=== PATIENT | male | born 1950 | race Caucasian/White ===

== ENCOUNTER 2016-02-26 08:28 | Outpatient (RCR) | payer OTHER ==
[~2016-02-26 08:28] MED LIST: ASPIRIN PO; CHILDREN'S ASPIRIN; COUM2.5T11 PO; FISHCAP PO; LEVO75TA2; LEVOTHYROXINE PO; LYRI75CA PO; MOTR200T4; NAPRPOW4 PO; NORT25CA2; PERCOCET PO; PLAV75TA2; PRAVASTATIN PO; PRIL40CA; SIMV10TA2; SYNT75TA; TYLE325T5 PO; ZOCO10TA; [UNRECOGNIZED DRUG - CODE]
== END 2016-03-24 ==
LOC: M ST 08:28
PROVIDERS: ATTEND Otolaryngology
DX: Z43.0 Encounter for attention to tracheostomy (principal); C32.0 Malignant neoplasm of glottis
CPT/HCPCS: 92597; G9174; G9175; G9176

== ENCOUNTER → 2016-04-01 | Outpatient (CLI) | payer OTHER ==
[~2016-04-01] MED LIST changes: +GASTROGRAFIN SOLUTION 30ML (Q9963) As Ordered ONE; +ISOVUE-370 76% 100ML VIAL (Q9967) As Ordered ONE
--- NOTE | 2016-04-02 04:15 | REP ---
Clinical: Nausea with increasing bilirubin levels and history of neoplasm. Technique: Axial noncontrast images of the abdomen followed by contrast enhanced images of the abdomen and pelvis using oral and 100 ml Isovue 370 intravenous contrast material with coronal and sagittal re-formations. Comparison: 05/09/2006. Findings: Lung bases demonstrate mild chronic changes. Visualized portions of the heart and pericardium normal. Liver, spleen, pancreas, left adrenal gland and bilateral kidneys are normal. 1.8 cm right adrenal adenoma is identified and stable compared to 2006. The enteric system is without obstruction or acute inflammatory process and a normal terminal ileum and appendix are identified in the right lower quadrant. Colonic and sigmoid diverticulosis noted without acute diverticulitis. Pelvis demonstrates relatively normal bladder and age appropriate prostate/seminal vesicles. Metallic streak artifact from the left hip prosthesis somewhat limits evaluation of the left jose pelvis. No pelvic fluid or ascites. No intraperitoneal or retroperitoneal adenopathy. No free air. Abdominal aorta and vasculature appears normal. Musculoskeletal structures demonstrate age-related changes. Impression: 1. Stable benign 1.8 cm right adrenal adenoma. II. Colonic diverticulosis. 3. No further acute intra-abdominal or pelvic pathology appreciated. Signed by Oni Wright MD 04/02/2016 04:07 A
== END ==
LOC: M RAD 14:11
PROVIDERS: ATTEND Physician Assistant Medical
DX: K57.90 Diverticulosis of intestine, part unspecified, without perforation or abscess without bleeding (principal)
CPT/HCPCS: 74178; Q9963; Q9967

== ENCOUNTER 2016-04-14 09:26 | Outpatient (RCR) | payer OTHER ==
[~2016-04-14 09:26] MED LIST changes: -GASTROGRAFIN SOLUTION 30ML (Q9963) As Ordered ONE; -ISOVUE-370 76% 100ML VIAL (Q9967) As Ordered ONE
== END 2016-04-21 ==
LOC: M ST 09:26
PROVIDERS: ATTEND Otolaryngology
DX: Z51.89 Encounter for other specified aftercare (principal); Z93.0 Tracheostomy status; C32.0 Malignant neoplasm of glottis
CPT/HCPCS: 92597; G9174; G9175; G9176

== ENCOUNTER 2016-07-09 08:55 | Outpatient (RCR) | payer OTHER | END 2016-07-22 | LOC: M ST 08:55 | PROVIDERS: ATTEND Otolaryngology | DX: Z51.89 Encounter for other specified aftercare (principal) | CPT/HCPCS: 92597; G9174; G9175; G9176 ==

== ENCOUNTER → 2016-07-21 | Outpatient (CLI) | payer OTHER ==
[~2016-07-21] MED LIST changes: +ISOVUE-370 76% 100ML VIAL (Q9967) As Ordered ONE
--- NOTE | 2016-07-21 16:03 | REP ---
CT HEAD WITHOUT AND WITH CONTRAST: HISTORY: Headache. CONTRAST: Isovue-370 75 mL. COMPARISON: 05/15/2008 An area of decreased attentuation is present in the posterior left temporal and parietal lobes. There is dilatation of the overlying cortical sulci. This represents an old infarction. Areas of decreased attenuation are present in the periventricular white matter. This represents small vessel ischemic disease. There is no intraparenchymal hemorrhage, mass, or midline shift. There is no abnormal enhancement. The ventricular system and cortical sulci are dilated consistent with mild volume loss. There is no extracerebral collection. The visualized sinuses are clear. IMPRESSION: 1. 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 2. Small vessel ischemic disease. 3. Mild volume loss. Signed by Ishmael Beaulieu MD 07/21/2016 04:14 P
--- NOTE | 2016-07-21 16:10 | REP ---
CT NECK WITH CONTRAST: HISTORY: Headache. CONTRAST: Isovue-370 75 mL COMPARISON: 05/23/2008 The patient is status-post total laryngectomy and left radical neck dissection. A tracheostomy is present. The patient is status-post stenting of the left common carotid and internal carotid arteries. The naso and oropharynx are normal in appearance. The salivary glands are normal in appearance. The right thyroid lobe is normal in appearance. The left thyroid lobe is not seen. Small lymph nodes less than 1 cm in size are present in the right posterior triangle and submandibular atherosclerotic calcification is present at the right carotid bifurcation. Degenerative change is present in the cervical spine. The lung apices are clear. The visualized sinuses are clear. IMPRESSION:1. The patient is status-post total laryngectomy, left radial neck dissection and tracheostomy. 2. There is no neck mass or adenopathy. Signed by Ishmael Beaulieu MD 07/21/2016 04:15 P
--- NOTE | 2016-07-21 23:10 | REP ---
Clinical: Cough and history of carcinoma. Comparison: 06/22/2013. Technique: Axial contrast enhanced images from the thoracic inlet to the upper abdomen using 100 ml Isovue 370 intravenous contrast material with coronal and sagittal re-formations. Findings: The patient is again noted to be status post radical neck dissection with tracheostomy. A stent is identified in the left common carotid artery. The bilateral lung zurita demonstrate minimal scarring primarily involving the right middle lobe. A few scattered minuscule nodules are again identified and unchanged. No consolidation, significant nodule or mass lesion appreciated. No pleural effusion/reaction or pneumothorax. Tracheobronchial tree is patent. The mediastinum demonstrates mild atherosclerotic changes. The thoracic aorta is without aneurysm or dissection. The heart is normal in size and without pericardial effusion. No axillary, hilar or mediastinal adenopathy appreciated. Impression: 1. Minimal chronic changes including linear scarring in the right middle lobe and few very small scattered nodular densities remain unchanged compared to 2013. 2. No new, significant mediastinal or pleuroparenchymal process. Signed by Oni Wright MD 07/21/2016 11:01 P
== END ==
LOC: M RAD 14:28
PROVIDERS: ATTEND Physician Assistant Medical
DX: I66.3 Occlusion and stenosis of cerebellar arteries (principal); R51 Headache; R05 Cough
CPT/HCPCS: 70470; 70491; 71260; Q9967

== ENCOUNTER 2016-08-11 09:40 | Outpatient (RCR) | payer MEDICARE, OTHER ==
[~2016-08-11 09:40] MED LIST changes: -COUM2.5T11 PO; +COUM2.5T17 PO; -ISOVUE-370 76% 100ML VIAL (Q9967) As Ordered ONE
== END 2016-08-21 | disposition home or self-care (01) ==
LOC: M ST 09:40
PROVIDERS: ATTEND Otolaryngology
DX: Z51.89 Encounter for other specified aftercare (principal); J95.04 Tracheo-esophageal fistula following tracheostomy
CPT/HCPCS: 92597; G9174; G9175; G9176

== ENCOUNTER 2016-08-18 08:30 | Outpatient (RCR) | payer MEDICARE, OTHER | END 2016-08-21 | LOC: M ST 08:30 | PROVIDERS: ATTEND Otolaryngology | DX: Z51.89 Encounter for other specified aftercare (principal); J95.04 Tracheo-esophageal fistula following tracheostomy ==

== ENCOUNTER 2016-09-07 17:24 | Outpatient (RCR) | payer MEDICARE, OTHER | END 2016-09-21 | LOC: M ST 17:24 | PROVIDERS: ATTEND Otolaryngology | DX: Z51.89 Encounter for other specified aftercare (principal); Z43.0 Encounter for attention to tracheostomy | CPT/HCPCS: 92597; G9174; G9175; G9176 ==

== ENCOUNTER 2017-03-02 09:11 | Outpatient (RCR) | payer OTHER | END 2017-03-24 | LOC: M ST 09:11 | DX: Z97.8 Presence of other specified devices (principal) | CPT/HCPCS: 92597 ==

== ENCOUNTER 2017-05-06 13:47 | Outpatient (RCR) | payer OTHER | END 2017-05-22 | LOC: M ST 13:47 | DX: Z51.89 Encounter for other specified aftercare (principal); Z90.02 Acquired absence of larynx | CPT/HCPCS: 92597 ==

== ENCOUNTER 2017-09-30 08:51 | Outpatient (RCR) | payer OTHER | END 2017-10-22 | LOC: M ST 08:51 | DX: Z44.8 Encounter for fitting and adjustment of other external prosthetic devices (principal); Z96.3 Presence of artificial larynx; Z51.89 Encounter for other specified aftercare | CPT/HCPCS: 92597 ==

== ENCOUNTER 2017-12-04 18:38 | Emergency (ER) | payer OTHER | END 2017-12-04 19:39 | disposition home or self-care (01) | LOC: M ED 18:38 | DX: J98.09 Other diseases of bronchus, not elsewhere classified (principal); I10 Essential (primary) hypertension | CPT/HCPCS: 99282 ==

== ENCOUNTER 2017-12-06 10:35 | Outpatient (RCR) | payer OTHER | END 2017-12-22 | LOC: M ST 12-08 13:00 | DX: Z90.02 Acquired absence of larynx (principal) | CPT/HCPCS: 92597 ==

== ENCOUNTER → 2017-12-06 | Outpatient (CLI) | payer OTHER | LOC: M RAD 15:49 | DX: J86.0 Pyothorax with fistula (principal); Z85.21 Personal history of malignant neoplasm of larynx; Z97.8 Presence of other specified devices | CPT/HCPCS: 74019 ==

== ENCOUNTER → 2017-12-06 | Outpatient (REF) | payer OTHER | LOC: M LAB REF 17:28 | DX: Z85.21 Personal history of malignant neoplasm of larynx (principal) ==

== ENCOUNTER → 2017-12-15 | Outpatient (CLI) | payer OTHER | LOC: M RAD 13:27 | DX: J86.0 Pyothorax with fistula (principal); Z93.1 Gastrostomy status; Z98.890 Other specified postprocedural states | CPT/HCPCS: 74019 ==

== ENCOUNTER 2017-12-22 09:07 | Day surgery (SDC) | payer OTHER ==
[2017-12-22] MEDS: CIPRODEX OTIC SUSP 7.5ML As Ordered (10:43)
[2017-12-22] MEDS ORDERED: ePHEDrine SULFATE 25 MG/5 ML(5MG/ML) SYRINGE As Ordered (11:22)
[2017-12-22] MEDS ORDERED: LIDOCAINE 2% INJ 100 MG/5 ML SDV (FOR ANES.) As Ordered (11:22)
[2017-12-22] MEDS ORDERED: fentaNYL 100 MCG/2 ML INJECTION (J3010) As Ordered (11:22)
[2017-12-22] MEDS ORDERED: PROPOFOL 200 MG/20 ML VIAL As Ordered (11:22)
[2017-12-22] MEDS ORDERED: MIDAZOLAM INJ 2 MG/2 ML VIAL (J2250) As Ordered (11:22)
[2017-12-22] MEDS ORDERED: LR 1,000 ML IV (11:45)
[2017-12-22] MEDS ORDERED: fentaNYL 100 MCG/2 ML INJECTION (J3010) IV (11:45)
[2017-12-22] MEDS ORDERED: ONDANSETRON 4MG/2ML VIAL (J2405) IV (11:45)
== END 2017-12-22 12:33 | disposition home or self-care (01) ==
LOC: M SDC 12:33
DX: T85.698A Other mechanical complication of other specified internal prosthetic devices, implants and grafts, initial encounter (principal); H61.22 Impacted cerumen, left ear; E03.9 Hypothyroidism, unspecified; E78.00 Pure hypercholesterolemia, unspecified; K44.9 Diaphragmatic hernia without obstruction or gangrene; K21.9 Gastro-esophageal reflux disease without esophagitis; G43.909 Migraine, unspecified, not intractable, without status migrainosus; Z79.899 Other long term (current) drug therapy; Z79.82 Long term (current) use of aspirin; Z86.73 Personal history of transient ischemic attack (TIA), and cerebral infarction without residual deficits; Z85.21 Personal history of malignant neoplasm of larynx; Z92.3 Personal history of irradiation; Z87.891 Personal history of nicotine dependence; Z96.642 Presence of left artificial hip joint; X58.XXXA Exposure to other specified factors, initial encounter; Y93.89 Activity, other specified; Y92.89 Other specified places as the place of occurrence of the external cause; Y99.8 Other external cause status
CPT/HCPCS: 69436

== ENCOUNTER 2018-01-24 11:57 | Day surgery (SDC) | payer OTHER ==
[2018-01-24] MEDS: LR 1,000 ML IV (13:06)
[2018-01-24] MEDS ORDERED: PROPOFOL 200 MG/20 ML VIAL As Ordered ×2 (13:59)
[2018-01-24] MEDS ORDERED: LIDOCAINE 2% INJ 100 MG/5 ML SDV (FOR ANES.) As Ordered (13:59)
[2018-01-24] MEDS ORDERED: ONDANSETRON 4MG/2ML VIAL (J2405) As Ordered (13:59)
[2018-01-24] MEDS ORDERED: MIDAZOLAM INJ 2 MG/2 ML VIAL (J2250) As Ordered (14:00)
[2018-01-24] MEDS ORDERED: fentaNYL 100 MCG/2 ML INJECTION (J3010) As Ordered (14:00)
== END 2018-01-24 15:58 | disposition home or self-care (01) ==
LOC: M SDC 11:57
DX: J95.04 Tracheo-esophageal fistula following tracheostomy (principal); E78.5 Hyperlipidemia, unspecified; K44.9 Diaphragmatic hernia without obstruction or gangrene; K21.9 Gastro-esophageal reflux disease without esophagitis; E03.9 Hypothyroidism, unspecified; Z85.21 Personal history of malignant neoplasm of larynx; Z79.82 Long term (current) use of aspirin; Z86.73 Personal history of transient ischemic attack (TIA), and cerebral infarction without residual deficits; Z98.61 Coronary angioplasty status; Z87.891 Personal history of nicotine dependence
CPT/HCPCS: 43246

== ENCOUNTER 2018-02-01 11:37 | Emergency (ER) | payer OTHER ==
[2018-02-01] MEDS: NS 1,000 ML IV (13:38)
[2018-02-01] MEDS: ONDANSETRON 4MG/2ML VIAL (J2405) IV ×2 (13:38→16:09)
[2018-02-01] MEDS: MORPHINE 4 MG/ML 1ML VIAL/SYRINGE (J2270) IV (13:39)
[2018-02-01 13:41] LABS: BASO # 0.1 10^3/uL (0.0-0.2); BASO % 0.7 % (0.0-1.0); EOS # 0.1 10^3/uL (0.0-0.50); EOS % 0.5 % (0.0-3.0); HEMATOCRIT 47.6 % (42.0-52.0); HEMOGLOBIN 15.5 g/dl (13.5-17.5); IMMATURE GRANULOCYTE % 0.5 % (0-3.0); LYMPH # 1.4 10^3/uL (1.5-4.5); LYMPH % 11.3 % (24.0-44.0); MEAN CORPUSCULAR HEMOGLOBIN 30.3 pg (27.0-33.0); MEAN CORPUSCULAR HGB CONC 32.6 g/dl (32.0-36.5); MEAN CORPUSCULAR VOLUME 93.2 fl (80.0-96.0); MONO # 0.6 10^3/uL (0.0-0.8); MONO % 4.8 % (0.0-5.0); NEUTROPHILS # 10.1 10^3/uL (1.8-7.7); NEUTROPHILS % 82.2 % (36.0-66.0); PLATELET COUNT, AUTOMATED 535 10^3/uL (150-450); RED BLOOD COUNT 5.11 10^6/uL (4.30-6.10); RED CELL DISTRIBUTION WIDTH 14.3 % (11.5-14.5); WHITE BLOOD COUNT 12.3 10^3/uL (4.0-10.0)
[2018-02-01 14:02] LABS: LACTIC ACID SEPSIS PROTOCOL 0.9 MMOL/L (0.4-2.0)
[2018-02-01] MEDS ORDERED: GASTROGRAFIN SOLUTION 30ML (Q9963) As Ordered ×2 (14:09)
[2018-02-01 14:25] LABS: ALBUMIN 3.4 GM/DL (3.2-5.2); ALBUMIN/GLOBULIN RATIO 0.85 (1.00-1.93); ALKALINE PHOSPHATASE 204 U/L (45-117); ALT/SGPT 26 U/L (12-78); ANION GAP 6 MEQ/L (8-16); AST/SGOT 14 U/L (7-37); BILIRUBIN,DIRECT 0.2 MG/DL (0.0-0.2); BILIRUBIN,TOTAL 0.8 MG/DL (0.2-1.0); BLOOD UREA NITROGEN 16 MG/DL (7-18); CALCIUM LEVEL 8.9 MG/DL (8.8-10.2); CARBON DIOXIDE LEVEL 26 MEQ/L (21-32); CHLORIDE LEVEL 110 MEQ/L (98-107); CREATININE FOR GFR 0.93 MG/DL (0.70-1.30); GLOMERULAR FILTRATION RATE > 60.0 (>49); GLUCOSE, FASTING 104 MG/DL (70-100); LIPASE 58 U/L (73-393); POTASSIUM SERUM 4.1 MEQ/L (3.5-5.1); SODIUM LEVEL 142 MEQ/L (136-145); TOTAL PROTEIN 7.4 GM/DL (6.4-8.2)
[2018-02-01] MEDS: NS 500 ML IV (15:15)
[2018-02-01] MEDS: fentaNYL 100 MCG/2 ML INJECTION (J3010) IV ×2 (15:15→17:56)
[2018-02-01] MEDS: ASPIRIN 81 MG CHEW TABLET PO (15:15)
[2018-02-01] MEDS: NITROGLYCERIN 0.4 MG SUBL TABLET SL ×3 (15:26→15:38)
[2018-02-01 15:44] LABS: CK-MB VALUE MASS < 1.0 NG/ML (<3.6); CPK CREATINE PHOSPHOKINASE 31 U/L (39-308); MB/CK RELATIVE INDEX 3.23 (< OR =4); TROPONIN I < 0.02 NG/ML (< 0.10)
[2018-02-01 15:48] LABS: D-DIMER QUANT 1279.92 ng/ml (<500)
[2018-02-01] MEDS ORDERED: ISOVUE-370 76% 100ML VIAL (Q9967) As Ordered (16:22)
[2018-02-01] MEDS: PROMETHAZINE INJ 25 MG/ML VIAL (J2550) IV (18:14)
[2018-02-01] MEDS ORDERED: ZONISAMIDE 50 MG CAP (ZONEGRAN) GT (19:15)
[2018-02-01] MEDS: ATORVASTATIN 20 MG TAB PEG (20:17)
[2018-02-01] MEDS: PANTOPRAZOLE 40MG TAB (PROTONIX) PO (20:17)
[2018-02-01] MEDS: GABAPENTIN 300 MG CAP PO (20:18)
[2018-02-01] MEDS: LEVOTHYROXINE 112MCG TABLET (0.112MG) PEG (20:18)
[2018-02-01] MEDS: ACETAMINOPHEN SUSP DYE FREE 160 MG/5 ML UDC PO (20:18)
[2018-02-01 20:47] LABS: CK-MB VALUE MASS < 1.0 NG/ML (<3.6); CPK CREATINE PHOSPHOKINASE 48 U/L (39-308); MB/CK RELATIVE INDEX 2.08 (< OR =4); TROPONIN I < 0.02 NG/ML (< 0.10)
== END 2018-02-01 21:25 | disposition home or self-care (01) ==
LOC: M ED 11:37
DX: R10.9 Unspecified abdominal pain (principal); R07.89 Other chest pain; K94.23 Gastrostomy malfunction
CPT/HCPCS: J2270

== ENCOUNTER → 2018-03-10 | Outpatient (CLI) | payer OTHER ==
[~2018-03-10] MED LIST changes: +ADUL81TA2 PO; +ATOR40TA75 PO; +CEPH500C; +EQ A; +GABA-843; +GABA-843 PO; +GASTROGRAFIN SOLUTION 30ML (Q9963) As Ordered ONE; +ISOVUE-300 61% 50ML VIAL (Q9967) As Ordered ONE; +ISOVUE-370 76% 100ML VIAL (Q9967) As Ordered ONE; +LEVO112T2 PO; +MELA5TAB20 PO; +ONDA4TAB5 PO; +PANT40TA3 PO; +RANI150T PO; +RIZA10TA2 PO; +VITA100066 PO; +VITA100067 PO; +ZONI25CA2 PO; +ZONI50CA3; +[UNRECOGNIZED DRUG - CODE]
[2018-03-10 12:59] LABS: BLOOD UREA NITROGEN 13 MG/DL (7-18); CREATININE FOR GFR 0.96 MG/DL (0.70-1.30); GLOMERULAR FILTRATION RATE > 60.0 (>49)
--- NOTE | 2018-03-10 14:02 | REP ---
CT NECK WITH CONTRAST: HISTORY: Tracheostomy fistula. CONTRAST: Isovue 370, 75 mL COMPARISON: 07/21/2016 The patient is status post total laryngectomy and left radical neck dissection. A tracheotomy defect is present. The patient is status post stenting of the left common carotid and internal carotid arteries. The naso and oropharynx are normal in appearance. Small lymph nodes less than 1 cm in size are present in the posterior triangles and submandibular areas. Atherosclerotic calcification is present at the right carotid bifurcation. The left common carotid is occluded at its origin. Degenerative change is present in the cervical spine. The lung apices are clear. The visualized sinuses are clear. IMPRESSION: 1. The patient is status post total laryngectomy and left radical neck dissection. 2. A tracheostomy defect is present. 3. There is no neck mass or adenopathy. 4. There is occlusion of the left common carotid artery at its origin. Electronically Signed by Ishmael Beaulieu MD 03/10/2018 02:06 P
--- NOTE | 2018-03-10 18:08 | REP ---
ESOPHAGRAM The procedure was performed under the direct supervision of Dr. Marie. The images were reviewed with Dr. Marie. Single view PA chest x-ray is submitted as a document improvement specialist film. The superior mediastinal structures are midline. Heart size within normal limits. Lungs are clear. There are postsurgical changes in the neck consistent with the patient's history of laryngectomy. A 50 50 solution of Isovue 300 and water was administered. The patient ingested contrast without difficulty. There are postsurgical changes in the neck consistent with the patient's history of laryngectomy. Esophageal transport is prompt and efficient and there is no esophagitis stricture mucosal ring or hiatal hernia. There is no evidence of extravasation. Impression: Postsurgical changes consistent with the patient's history of laryngectomy. There is no evidence of stricture or obstruction or extravasation. 0.2 minutes of fluoroscopy time was utilized for this procedure. Reviewed by KANU Newton 03/10/2018 03:59 P Electronically Signed by Hero Marie MD 03/10/2018 05:59 P
== END ==
LOC: M RAD 11:40
PROVIDERS: ATTEND Otolaryngology
DX: J95.04 Tracheo-esophageal fistula following tracheostomy (principal); I65.22 Occlusion and stenosis of left carotid artery; M50.30 Other cervical disc degeneration, unspecified cervical region; Z95.828 Presence of other vascular implants and grafts
CPT/HCPCS: 70491; 74220; 82565; 84520; Q9963; Q9967

== ENCOUNTER → 2019-07-17 | Outpatient (CLI) | payer OTHER ==
[~2019-07-17] MED LIST changes: +ASPI81TA85 PO; -GASTROGRAFIN SOLUTION 30ML (Q9963) As Ordered ONE; -ISOVUE-300 61% 50ML VIAL (Q9967) As Ordered ONE; -ISOVUE-370 76% 100ML VIAL (Q9967) As Ordered ONE; +OFLOSO AS; +ONDA-83 PO; -ONDA4TAB5 PO; +RA A; +VITAD1000T PO; +ZONI25CA13 PO; -ZONI25CA2 PO; +ZONI50CA11; -ZONI50CA3; -[UNRECOGNIZED DRUG - CODE]
== END ==
LOC: M LABSMTC 11:47
PROVIDERS: ATTEND Anesthesiology
DX: Z01.812 Encounter for preprocedural laboratory examination (principal); Z11.59 Encounter for screening for other viral diseases

== ENCOUNTER 2019-07-20 10:03 | Day surgery (SDC) | payer MEDICARE ==
[~2019-07-20] VITALS: Ht 170.2 cm; Wt 85.3 kg
[~2019-07-20 10:03] MED LIST changes: +CEFUROXIME 1MG/0.1ML INTRACAMERAL INJ As Ordered ONE; +DUOVISC (0.50ML VISCOAT/0.55ML PROVISC) OPHTH KIT As Ordered ONE; +MIDAZOLAM INJ 2MG/2ML VIAL (J2250 PER 1MG) As Ordered ONE; +OFLOXACIN 0.3 % (OCUFLOX) OPTH SOL 5ML OS ONE; +PHENYLEPHRINE 2.5% OPHTH SOL 2ML OS ONE; +POVIDONE-IODINE 5% OPHTH PREP SOL 30ML As Ordered ONE; +PROPARACAINE 0.5% OPHTH SOL 15ML OS ONE; +TROPICAMIDE 1% OPHTH SOLN 2ML OS ONE; +fentaNYL 100 MCG/2 ML INJECTION (J3010) As Ordered ONE
[2019-07-20] MEDS ORDERED: BSS IRR 500ML/OMIDRIA 4ML IRR BAG (OR ONLY) (J1097 PER ML) As Ordered ONE (10:26)
[2019-07-20 13:20] VITALS: BP 115/70
--- NOTE | 2019-07-28 00:01 | RO ---
DATE OF PROCEDURE: 07/20/2019 PREOPERATIVE DIAGNOSIS: 1. Visually significant nuclear sclerotic cataract left eye. POSTOPERATIVE DIAGNOSIS: 1. Visually significant nuclear sclerotic cataract left eye. PROCEDURE: 1. Cataract extraction with use of phacoemulsification and placement of intraocular lens, AU00T0, 20.5 D, left eye. SURGEON: Gary Dickey DO SHOW JUMPING INSTRUCTOR: None. ANESTHESIA: Local with monitored anesthesia care (MAC), with Omidria (4 mL/500 mL) mixed into irrigation solution. COMPLICATIONS: None. POSTOPERATIVE CONDITION: Stable. INDICATIONS FOR SURGERY: 1. Blurred vision affecting patients activities of daily living. DESCRIPTION OF PROCEDURE: The patient was seen in the preoperative area and properly identified. The correct operative eye was identified and marked. The patient received topical anesthetic, antibiotics, and topical dilating drops. The patient was then transferred to the operating room. The correct side was re-identified, and a time-out was performed. The eye was prepped and draped in a sterile fashion. The eyelids were isolated with Tegaderm tape, and the lids were held open with an adjustable speculum. A 1.0 mm paracentesis incision was made. Intraocular preservative-free Shugarcaine was then injected into the anterior chamber. Viscoelastic was then injected into the anterior chamber through the paracentesis. Using a 2.4 mm sharp-tipped keratome, the anterior chamber was entered via a temporal clear cornea incision. A continuous curvilinear capsulorrhexis was created with Utrata forceps. Hydrodissection was performed with balanced salt solution (BSS) on a blunt cannula until the nucleus was able to rotate freely. The crystalline lens was phacoemulsified and aspirated. Irrigation/aspiration was used to remove the cortical material. Cohesive viscoelastic was placed into the capsular bag to deepen it. The implant was placed into the capsular bag and allowed to unfold. Placement was confirmed by visualizing the anterior capsulorrhexis. Irrigation/aspiration was used to remove the viscoelastic. The clear corneal incision was hydrated with BSS on a blunt cannula. The lens was well positioned. The incisions were then tested for leaks and found to be negative. Cefuroxime was injected into the anterior chamber. The eye was then palpated for appropriate pressure and adjusted accordingly with BSS. The eyelid speculum was then carefully removed. A shield was placed over the eye. The patient tolerated the procedure well and was discharged to the recovery unit in a stable condition.
== END 2019-07-20 13:53 | disposition home or self-care (01) ==
LOC: M SDC 10:03
PROVIDERS: ATTEND Ophthalmology
DX: H25.12 Age-related nuclear cataract, left eye (principal); E78.5 Hyperlipidemia, unspecified; E03.9 Hypothyroidism, unspecified; K21.9 Gastro-esophageal reflux disease without esophagitis; Z86.73 Personal history of transient ischemic attack (TIA), and cerebral infarction without residual deficits; Z79.82 Long term (current) use of aspirin; Z79.899 Other long term (current) drug therapy; Z87.891 Personal history of nicotine dependence; F32.9 Major depressive disorder, single episode, unspecified; Z92.3 Personal history of irradiation
CPT/HCPCS: 66984; J1097; J2250; J3010; V2632

== ENCOUNTER → 2019-08-16 | Outpatient (CLI) | payer MEDICARE ==
[~2019-08-16] MED LIST changes: -ASPI81TA85 PO; +ASPI81TA86 PO; -CEFUROXIME 1MG/0.1ML INTRACAMERAL INJ As Ordered ONE; +D31000TA2 PO; -DUOVISC (0.50ML VISCOAT/0.55ML PROVISC) OPHTH KIT As Ordered ONE; -MIDAZOLAM INJ 2MG/2ML VIAL (J2250 PER 1MG) As Ordered ONE; -OFLOXACIN 0.3 % (OCUFLOX) OPTH SOL 5ML OS ONE; +PANT40TA29 PO; -PANT40TA3 PO; -PHENYLEPHRINE 2.5% OPHTH SOL 2ML OS ONE; -POVIDONE-IODINE 5% OPHTH PREP SOL 30ML As Ordered ONE; -PROPARACAINE 0.5% OPHTH SOL 15ML OS ONE; +TRAM50TA2 PO; -TROPICAMIDE 1% OPHTH SOLN 2ML OS ONE; -VITAD1000T PO; +XARE10TA PO; +ZOLO25TA PO; -fentaNYL 100 MCG/2 ML INJECTION (J3010) As Ordered ONE
[2019-08-16 16:06] LABS: HEMATOCRIT 44.1 % (42.0-52.0); HEMOGLOBIN 14.7 g/dl (13.5-17.5); MEAN CORPUSCULAR HEMOGLOBIN 31.5 pg (27.0-33.0); MEAN CORPUSCULAR HGB CONC 33.3 g/dl (32.0-36.5); MEAN CORPUSCULAR VOLUME 94.4 fl (80.0-96.0); PLATELET COUNT, AUTOMATED 392 10^3/uL (150-450); RED BLOOD COUNT 4.67 10^6/uL (4.30-6.10); WHITE BLOOD COUNT 7.8 10^3/uL (4.0-10.0)
[2019-08-16 16:27] LABS: ALBUMIN 4.1 GM/DL (3.2-5.2); ALT/SGPT 22 U/L (12-78); BILIRUBIN,TOTAL 1.4 MG/DL (0.2-1.0); BLOOD UREA NITROGEN 16 MG/DL (7-18); CARBON DIOXIDE LEVEL 25 MEQ/L (21-32); CHLORIDE LEVEL 111 MEQ/L (98-107); CREATININE FOR GFR 1.12 MG/DL (0.70-1.30); GLOMERULAR FILTRATION RATE > 60.0 (>42); GLUCOSE, FASTING 100 MG/DL (70-100); SODIUM LEVEL 142 MEQ/L (136-145); TOTAL PROTEIN 6.8 GM/DL (6.4-8.2)
[2019-08-16 16:40] LABS: INR 1.12; PROTHROMBIN TIME 14.1 SECONDS (11.8-14.0)
[2019-08-16 16:49] LABS: ERYTHROCYTE SEDIMENTATION RATE 2 mm/hr (0-20)
--- NOTE | 2019-08-16 23:25 | REP ---
CHEST X-RAY, TWO VIEWS: HISTORY: Left hip osteoarthritis. COMPARISON CHEST X-RAY: 02/01/2018 FINDINGS: There is mild fissural thickening on the right. The lungs are well inflated and free of infiltrate. Pleural angles are sharp. Heart is not enlarged. Pulmonary vasculature is not increased. Mild degenerative changes are seen in the mid thoracic spine. IMPRESSION: No acute disease. Electronically Signed by Hero Marie MD 08/17/2019 07:57 A
--- NOTE | 2019-08-18 17:04 | ECGEPIP ---
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
== END ==
LOC: M LAB 15:31
PROVIDERS: ATTEND Orthopaedic Surgery
DX: M25.551 Pain in right hip (principal); Z01.818 Encounter for other preprocedural examination

== ENCOUNTER → 2019-08-20 | Outpatient (CLI) | payer MEDICARE ==
[~2019-08-20] MED LIST changes: +ASPI81TA85 PO; -ASPI81TA86 PO; -D31000TA2 PO; -PANT40TA29 PO; +PANT40TA3 PO; +VITAD1000T PO; -XARE10TA PO
== END ==
LOC: M LABSMTC 09:46
PROVIDERS: ATTEND Anesthesiology
DX: Z03.818 Encounter for observation for suspected exposure to other biological agents ruled out (principal)
CPT/HCPCS: C9803; U0003

== ENCOUNTER → 2019-09-06 | Outpatient (CLI) | payer MEDICARE ==
[~2019-09-06] MED LIST changes: -ASPI81TA85 PO; +ASPI81TA86 PO; +D31000TA2 PO; +PANT40TA29 PO; -PANT40TA3 PO; -VITAD1000T PO; +XARE10TA PO
== END ==
LOC: M LABSMTC 14:15
PROVIDERS: ATTEND Anesthesiology
DX: Z01.818 Encounter for other preprocedural examination (principal); Z11.59 Encounter for screening for other viral diseases
CPT/HCPCS: C9803; U0003

== ENCOUNTER 2019-09-11 07:07 | Inpatient (IN) | payer MEDICARE ==
--- NOTE | 2019-09-07 15:25 | HPE ---
DATE OF ADMISSION: 09/11/2019 ATTENDING PHYSICIAN: Dr. Harpreet Pryor CHIEF COMPLAINT: Right hip pain and stiffness. HISTORY: The patient is a pleasant, nonverbal 69-year-old male with progressively worsening right hip pain and stiffness. He has failed to improve with conservative measures. He continues to have symptoms with weightbearing activities and activities of daily living. He has consented for an elective right total hip arthroplasty with Dr. Pryor for his continued symptoms. Medical optimization completed with CODY Jaimes and was reviewed during visit today. CURRENT MEDICATIONS: - aspirin 81 mg daily - Lipitor 40 mg daily - Zyrtec 10 mg daily - gabapentin 300 mg daily - levothyroxine 112 mcg daily - pantoprazole 40 mg twice daily - Zoloft 25 mg daily - zonisamide 75 mg daily ALLERGIES: There are NO KNOWN DRUG ALLERGIES. CHRONIC MEDICAL CONDITIONS: Elevated liver function tests. Carotid artery stenosis on the left. Cerebrovascular disease with history of CVA in 2008. Neck pain. Chronic migraines Depression. Gastroesophageal reflux disease. Hyperlipidemia. Hypothyroid. History of laryngeal cancer status post tracheotomy. Organic impotence. Vitamin D deficiency. PAST SURGICAL HISTORY: Cardiovascular surgery with cardiac stent placement. Cholecystectomy. Hernia repair. Left hip replacement. Surgery for his laryngeal cancer. SOCIAL HISTORY: Patient is a former smoker and denies alcohol use. Patient is and lives at home with spouse. REVIEW OF SYSTEMS: Patient denies fevers, chills, nausea, vomiting or diarrhea. Denies chest pain, shortness of breath, lightheadedness, dizziness or headaches. Denies any abdominal pain. Denies any upper respiratory or urinary tract infection symptoms. He does continue to have right hip pain with weightbearing activities and activities of daily living. PHYSICAL EXAMINATION: General: Well-nourished, well-developed male in no apparent distress. He is alert, oriented and cooperative. His mood and affect are appropriate. Vital signs: Height 5 feet 7 inches, weight 180 pounds, temperature 98 degrees, blood pressure 128/34, respirations 14, heart rate 57. Neck: Supple without lymphadenopathy. Heart: Regular rate and rhythm. Lungs: Clear to auscultation bilaterally. Abdomen: Soft and nontender to palpation. Bowel sounds present. Right hip: No gross abnormalities. Skin is intact. The patient has significantly limited range of motion of the hip with associated pain. There is tenderness along the groin and lateral hip. Strength in the right lower extremity is 4+/5 secondary to pain at the right hip. Calf is soft and nontender to palpation. He is neurovascularly intact distally. Extremity does appear to be warm and well perfused. LABORATORY DATA: EKG sinus bradycardia. Chest x-ray no acute disease. Right hip x-ray notable for end-stage degenerative changes. Comprehensive metabolic profile: Fasting glucose 100, BUN 16, creatinine 1.12, GFR greater than 60, sodium 142, potassium 4, chloride elevated at 111, carbon dioxide 25, anion gap decreased at 6, calcium 9, AST 14, ALT 22, alkaline phosphatase elevated at 139, total bilirubin elevated at 1.4, total protein 6.8, albumin 4.1, albumin-globulin ratio 1.5. Prothrombin time elevated at 14.1, INR 1.12. Complete blood count: ESR 2, WBCs 7.8, RBCs 4.67, hemoglobin 14.7, hematocrit 44.1, platelets 392. IMPRESSION: Right hip osteoarthritis with x-rays notable for end-stage degenerative changes. PLAN: The patient has consented for an elective right total hip arthroplasty with Dr. Pryor for his continued symptoms. Medical optimization was completed with CODY Jaimes. 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 He will call [facility] tomorrow afternoon to get a report time for Wednesday. He understands to be nothing by mouth after midnight with the exception of taking any medications his primary care recommended he take the morning of surgery with a small sip of water. The patient will follow his primary home care physical therapist's recommendations for taking his daily medications. BEA
[~2019-09-11] VITALS: Ht 170.2 cm; Wt 82.0 kg
[2019-09-11] VITALS (7 sets, daily range): BP systolic 113–126; BP diastolic 65–70
[~2019-09-11 07:07] MED LIST changes: +ASPI81TA85 PO; -ASPI81TA86 PO; -D31000TA2 PO; -PANT40TA29 PO; +PANT40TA3 PO; +VITAD1000T PO; -XARE10TA PO
[2019-09-11] MEDS ORDERED: ceFAZolin 1GM VIAL (J0690 PER 500MG) As Ordered ONE (07:15)
[2019-09-11] MEDS ORDERED: TRANEXAMIC ACID 100 MG/ML 10ML VIAL As Ordered ONE (07:16)
[2019-09-11] MEDS ORDERED: EPINEPHrine INJ 1 MG/ML 1ML AMP As Ordered ONE (07:16)
[2019-09-11] MEDS ORDERED: BUPIVACAINE LIPOSOME/PF 1.3% 20ML VIAL (13.3MG/ML)(EXPAREL)(C9290 PER1MG) As Ordered ONE (07:17)
[2019-09-11] MEDS ORDERED: LR 1,000 ML IV ONE (07:30)
[2019-09-11] MEDS ORDERED: ceFAZolin 2 GM/D5W 50 ML IV BAG (J0690 PER 500MG) As Ordered ONE (08:46)
[2019-09-11] MEDS ORDERED: ceFAZolin SOD 2 GM in IV 1 EA IV ONE (09:00)
--- NOTE | 2019-09-11 09:22 | IPN ---
DATE: 09/11/2019 Patient seen and examined. He wished to go ahead with a right total hip arthroplasty. He understands the nature of this, the risks of bleeding, infection, damage to nerves, vessels, persistent pain, wear loosening, dislocation, leg length inequality, blood clots, medical problems, , among others. We will plan on proceeding with a right hip arthroplasty.
[2019-09-11] MEDS ORDERED: fentaNYL 100 MCG/2 ML INJECTION (J3010) As Ordered ONE (10:01)
[2019-09-11] MEDS ORDERED: LIDOCAINE 2% 100MG/5ML SDV (FOR ANES.) As Ordered ONE (10:01)
[2019-09-11] MEDS ORDERED: MIDAZOLAM INJ 2MG/2ML VIAL (J2250 PER 1MG) As Ordered ONE (10:01)
[2019-09-11] MEDS ORDERED: propofoL 200 MG/20 ML VIAL As Ordered ONE (10:01)
[2019-09-11] MEDS ORDERED: ePHEDrine SULFATE 25 MG/5 ML(5MG/ML) SYRINGE As Ordered ONE (10:02)
[2019-09-11] MEDS ORDERED: PHENYLephrine HCL 500 MCG/5 ML (100MCG/ML) SYRINGE (J2370) As Ordered ONE (10:07)
[2019-09-11] MEDS ORDERED: ONDANSETRON 4MG/2ML VIAL As Ordered ONE (10:14)
[2019-09-11] MEDS ORDERED: oxyCODONE 5MG TAB As Ordered ONE (10:57)
[2019-09-11] MEDS: oxyCODONE 5MG TAB PO PRN ×2 (11:00→11:31)
[2019-09-11] MEDS ORDERED: ONDANSETRON 4MG/2ML VIAL IV PRN (11:15)
[2019-09-11] MEDS ORDERED: fentaNYL 100 MCG/2 ML INJECTION (J3010) IV PRN (11:15)
[2019-09-11] MEDS: LR 1,000 ML IV SCH ×2 (11:15→14:21)
[2019-09-11] MEDS ORDERED: MORPHINE 4 MG/ML 1ML VIAL/SYRINGE (J2270) IV PRN (11:15)
[2019-09-11] MEDS ORDERED: HYDROMORPHONE HCL 0.5 MG/ 0.5 ML SYRINGE (J1170 PER 1) IV PRN (11:15)
[2019-09-11] MEDS ORDERED: ACETAMINOPHEN TAB 650MG DOSE (2X325MG) PO PRN (11:15)
[2019-09-11] MEDS ORDERED: LR 1,000 ML IV SCH (11:15)
[2019-09-11] MEDS ORDERED: PERCOCET 5MG/325MG TAB PO PRN (11:15)
--- NOTE | 2019-09-11 11:31 | REP ---
Clinical: Status post arthroplasty. Technique: AP and cross-table lateral views. Findings: The patient is status post right hip replacement with normal positioning and appearance to the femoral and acetabular components. Overlying postsurgical changes appreciated. Impression: Satisfactory right hip replacement radiographs. Electronically Signed by Oni Wright MD 09/11/2019 11:22 A
[2019-09-11] MEDS: ONDANSETRON 4MG/2ML VIAL IV PRN ×2 (14:18→20:41)
[2019-09-11] MEDS: MORPHINE 2 MG/ML 1ML VIAL (J2270) IV PRN ×2 (15:05→23:22)
[2019-09-11] MEDS ORDERED: METOCLOPRAMIDE INJ 10MG/2ML VIAL (J2765 PER 1) IV ONE (15:30)
--- NOTE | 2019-09-11 16:36 | HPEPDOC ---
[facility] Medical History & Physical Date of Admission Sep 11, 2019 Date of Service: Sep 11, 2019 Attending Physician: Mami Sampson MD History and Physical CONSULT FOR MEDICAL MANAGEMENT HISTORY OF PRESENT ILLNESS: Patient is a 69-year-old male with past medical history of prior CVA, coronary artery disease history of tobacco use, depression, GERD, carotid artery stenosis who we were asked to see under consult after undergoing right hip arthroplasty on 09/11/2019. The patient's was at the bedside and helped with collecting past medical history. The patient has had progressively worsening right hip pain, stiffness and difficulty ambulating at baseline. Conservative treatment was attempted as outpatient; however, this did not help. He had difficulty ambulating and weightbearing on the right hip, this was interrupting activities of daily living. Dr. Pryor, orthopedic surgery, took him in today for elective r ight total hip arthroplasty. According to surgical notes, there were no intraoperative concerns. Postoperatively the patient was very pleasant and denied uncontrolled right hip pain. The site appeared to be clean, nonerythematous, covered by a clean bandage. Mild tenderness around this area was present, but is to be expected. Vital signs were stable and the patient had no acute complaints outside of some mild nausea. He denied chest pain, increased shortness of breath, fevers, chills, lightheadedness or dizziness. REVIEW OF SYSTEMS: CONSTITUTIONAL: Denies lack of energy, unexplained weight gain or weight loss, loss of appetite, fever, night sweats EYES: Denies eye drainage, eye pain, visual changes, dry/irritated eye EARS, NOSE, MOUTH, THROAT: Denies difficulty hearing, ringing in ears, mouth sores, loose teeth, sore throat, facial numbness or pain NECK: Denies swollen glands CARDIOVASCULAR: Denies irregular heartbeat, racing heart, chest pains, swelling of feet or legs, pain in legs with walking RESPIRATORY: Denies shortness of breath, night sweats, wheezing, sputum production, oxygen at home, coughing up blood, cough lasting > 1 month GASTROINTESTINAL: Denies abdominal pain, constipation, bloody stool, diarrhea, heartburn, nausea, vomiting GENITOURINARY: Denies painful urination, bloody urine, frequent urination, urgency, leaking urine, impotence MUSCULOSKELETAL: Denies muscle pain, leg swelling INTEGUMENTARY: Denies rash, itching, new skin lesion, change in existing skin lesion, hair loss or increase, breast changes. NEUROLOGICAL: Denies dizziness, numbness or tingling PSYCHIATRIC: Denies depression, anxiety, recurrent bad thoughts, mood swings, hallucinations PAST MEDICAL HISTORY: Elevated liver function tests. Carotid artery stenosis on the left. Cerebrovascular disease with history of CVA in 2009. Neck pain. Chronic migraines Depression. Gastroesophageal reflux disease. Hyperlipidemia. Hypothyroid. History of laryngeal cancer status post tracheotomy. Organic impotence. Vitamin D deficiency. PAST SURGICAL HISTORY: Cardiovascular surgery with cardiac stent placement. Cholecystectomy. Hernia repair. Left hip replacement. Surgery for his laryngeal cancer. SOCIAL HISTORY: Patient is a former smoker for 40 years, quit in 1991. Denies alcohol or drug use. Patient is and lives at home with spouse. He follows with PCP regularly. FAMILY HISTORY: Father: leukemia. at 74 y/o Mother: CAD. at 54 y/o. Uncle: cancer, type unknown. at age unknown. ALLERGIES: Please see below. HOME MEDICATIONS: Please see below. PHYSICAL EXAMINATION: CONSTITUTIONAL: No acute distress, resting comfortably, AAO x 3 but unable to talk using voice. He communicated mostly with his hands and through his - baseline s/p laryngectomy. EYES: PERRLA, EOM intact HENT, MOUTH: Normocephalic, atraumatic, moist mucous membranes NECK: SUPPLE, no JVD, no lymphadenopathy, no carotid bruit CV: Regular rate and rhythm, S1S2 normal, no murmurs/rubs/gallops RESPIRATORY: Clear to auscultation bilaterally, no rales/rhonchi/wheezes GI: BS positive in 4 quadrants, soft, nontender, nondistended, no rebound or guarding, no organomegaly : Deferred MUSCULOSKELETAL: ROM not tested in R hip. No cyanosis, clubbing, swelling, joint deformity, extremity edema INTEGUMENTARY: Large hip incision covered by clean bandage, no surrounding erythema, mild tenderness. Otherwise Intact, no rashes, no lesions NEUROLOGIC: Cranial Nerves II-XII are intact, no focal deficits PSYCHIATRIC: Mood and affect are normal LABORATORY DATA: Please see below IMAGING: R hip XR: Satisfactory right hip replacement radiographs. ASSESSMENT: 69 y/o M with PMH of prior CVA, coronary artery disease, history of tobacco use, depression, GERD, carotid artery stenosis who was admitted for [facility] t hip arthroplasty on 09/11/2019. PLAN: 1. Right hip osteoarthritis s/p right total hip arthroplasty. -Tolerated procedure well -Orthopedic surgery primary. -C/w pain regimen -PT/OT, activity with pt assist, WBAT -RLE 2. CAD s/p stent -Denies chest pain, shortness of breath -C/w home meds except for ASA 3. Hx of CVA -No new focal deficits -C/w statin, holding ASA 4. Depression -Stable -C/w home med 5. Hypothyroidism -C/w levothyroxine 6. GERD -PPI BID 7. DVT px -xarelto daily Vital Signs Vital Signs Date Time Temp Pulse Resp B/P (MAP) Pulse Ox O2 Delivery O2 Flow Rate FiO2 09/11/19 16:00 97.3 72 20 113/65 (81) 95 Room Air Home Medications Scheduled Aspirin (Aspir 81) 81 Mg Tablet.dr, 81 MG PO DAILY Atorvastatin Calcium (Atorvastatin Calcium) 40 Mg Tab, 40 MG PO DAILY Cholecalciferol (Vitamin D3) (Vitamin D3) 1,000 Unit Tablet, 5,000 UNITS PO DAILY Gabapentin (Gabapentin) 300 Mg Cap, 300 MG PO BID Levothyroxine Sodium (Levothyroxine Sodium) 112 Mcg Tab, 112 MCG PO DAILY Pantoprazole Sodium (Pantoprazole Sodium) 40 Mg Tab, 40 MG PO BID Sertraline Hcl (Zoloft) 25 Mg Tablet, 25 MG PO QHS Zonisamide (Zonisamide) 25 Mg Cap, 75 MG PO BID Scheduled PRN Melatonin (Melatonin) 5 Mg Chw, 5 MG PO QHSP PRN for SLEEP Ondansetron HCl (Ondansetron HCl) 4 Mg Tab, 4 MG PO PRN PRN for NAUSEA Rizatriptan Benzoate (Rizatriptan) 10 Mg Tab, 10 MG PO PRN PRN for MIGRAINE Allergies Coded Allergies: No Known Allergies (Unverified , 09/11/19) A-FIB/CHADSVASC A-FIB History Current/History of A-Fib/PAF?: No Current PO Anticoag Therapy: No Age/Risk Factor Scoring CHADSVASC: CHADSVASC Response (Comments) Value Age Risk Factor Age 65-74 years old 1 Gender Risk Factor Male 0 Hx of CHF No 0 Hx of HTN No 0 Hx of Stroke/TIA/or VTE Yes 2 Hx of Diabetes No 0 Hx of Vascular Disease No 0 Total 3 Treatment Treatment ordered: Rivaroxaban Other anticoagulant ordered: yes Mami Sampson MD Sep 11, 2019 16:36
[2019-09-11] MEDS: ceFAZolin SOD 2 GM in IV 1 EA IV SCH (16:41)
[2019-09-11] MEDS ORDERED: RIZATRIPTAN BENZOATE 10 MG TAB PO PRN (16:45)
[2019-09-11] MEDS: GABAPENTIN 300 MG CAP PO SCH (20:36)
[2019-09-11] MEDS: PANTOPRAZOLE 40MG TAB (PROTONIX) PO SCH (20:37)
[2019-09-11] MEDS ORDERED: ATORVASTATIN 20 MG TAB PO SCH (21:00)
[2019-09-11] MEDS ORDERED: ZONISAMIDE 50 MG CAP (ZONEGRAN) PO SCH (21:00)
[2019-09-11] MEDS ORDERED: SERTRALINE HCL 25 MG TABLET PO SCH (21:00)
[2019-09-11] MEDS: PROMETHAZINE INJ 25 MG/ML VIAL (J2550) IV PRN (23:22)
[2019-09-12] MEDS: ceFAZolin SOD 2 GM in IV 1 EA IV SCH (01:28)
[2019-09-12] MEDS: MORPHINE 2 MG/ML 1ML VIAL (J2270) IV PRN ×2 (01:31→05:19)
[2019-09-12 02:00] VITALS: BP 123/72
[2019-09-12] MEDS ORDERED: traMADol 50 MG TAB PO PRN ×2 (05:45)
[2019-09-12] MEDS: ACETAMINOPHEN 500 MG TAB PO SCH ×2 (05:58→13:41)
[2019-09-12] MEDS ORDERED: LEVOTHYROXINE 112MCG TABLET (0.112MG) PO SCH (06:00)
[2019-09-12] MEDS ORDERED: ACETAMINOPHEN *IV* 1,000 MG in IV 1 EA IV ONE (06:00)
[2019-09-12] MEDS: PROMETHAZINE INJ 25 MG/ML VIAL (J2550) IV PRN (06:01)
[2019-09-12 06:30] VITALS: BP 132/70
[2019-09-12 06:39] LABS: HEMATOCRIT 34.6 % (42.0-52.0); HEMOGLOBIN 11.9 g/dl (13.5-17.5); MEAN CORPUSCULAR HEMOGLOBIN 32.2 pg (27.0-33.0); MEAN CORPUSCULAR HGB CONC 34.4 g/dl (32.0-36.5); MEAN CORPUSCULAR VOLUME 93.5 fl (80.0-96.0); PLATELET COUNT, AUTOMATED 289 10^3/uL (150-450); WHITE BLOOD COUNT 10.3 10^3/uL (4.0-10.0)
[2019-09-12] MEDS ORDERED: TRAM50TA2 PO (07:42)
[2019-09-12] MEDS ORDERED: XARE10TA PO (07:42)
[2019-09-12] MEDS: MOM 30ML SUSPENSION UDC PO SCH ×3 (08:54→09:00)
[2019-09-12] MEDS: PANTOPRAZOLE 40MG TAB (PROTONIX) PO SCH (08:55)
[2019-09-12] MEDS: GABAPENTIN 300 MG CAP PO SCH (08:57)
[2019-09-12] MEDS ORDERED: MIRALAX *UNIT DOSE* 17GM PACKET PO SCH (09:00)
[2019-09-12] MEDS ORDERED: ZONISAMIDE 100 MG CAP (ZONEGRAN) PO SCH (09:00)
[2019-09-12 14:00] VITALS: BP 108/69
[2019-09-12] MEDS ORDERED: RIVAROXABAN 10 MG TAB (XARELTO) PO SCH (18:00)
== END 2019-09-12 16:25 | disposition home or self-care (01) | DRG 470 ==
LOC: M OR 07:07 → M MS5PR 14:45
PROVIDERS: ADMIT Orthopaedic Surgery; ATTEND Orthopaedic Surgery
PROC: 0SR90JA Replacement of Right Hip Joint with Synthetic Substitute, Uncemented, Open Approach (ICD-10-PCS; principal; 2019-09-11 09:15)
DX: M16.11 Unilateral primary osteoarthritis, right hip (principal); I65.22 Occlusion and stenosis of left carotid artery; E55.9 Vitamin D deficiency, unspecified; K21.9 Gastro-esophageal reflux disease without esophagitis; E03.9 Hypothyroidism, unspecified; M54.2 Cervicalgia; Z79.82 Long term (current) use of aspirin; Z79.899 Other long term (current) drug therapy; Z86.73 Personal history of transient ischemic attack (TIA), and cerebral infarction without residual deficits; G43.909 Migraine, unspecified, not intractable, without status migrainosus; F32.9 Major depressive disorder, single episode, unspecified; E78.5 Hyperlipidemia, unspecified; Z87.891 Personal history of nicotine dependence; Z96.642 Presence of left artificial hip joint; Z85.21 Personal history of malignant neoplasm of larynx

== ENCOUNTER → 2021-04-14 | Outpatient (CLI) | payer MEDICARE ==
[~2021-04-14] MED LIST changes: -ASPI81TA85 PO; +ASPI81TA86 PO; +D31000TA2 PO; +GABA-282; +GABA-282 PO; -GABA-843; -GABA-843 PO; +ISOVUE-370 76% 100ML VIAL ONE; +PANT40TA29 PO; -PANT40TA3 PO; -VITAD1000T PO; +XARE10TA PO
== END ==
LOC: M PLAIMG 10:32
PROVIDERS: ATTEND Physician Assistant Medical
DX: R91.1 Solitary pulmonary nodule (principal)
CPT/HCPCS: 71260; Q9967

== ENCOUNTER → 2021-06-11 | Outpatient (CLI) | payer MEDICARE ==
[~2021-06-11] MED LIST changes: -D31000TA2 PO; +E-Z-GAS II EFFERVESCENT PACKET (SODIUM BICARB./CITRIC ACID/SIMETHICONE) As Ordered ONE; +E-Z-HD 98% w/w 340GM SUSP BTL As Ordered ONE; +E-Z-PAQUE 96% w/w SUSP 176GM BTL As Ordered ONE; +ISOVUE-370 76% 100ML VIAL As Ordered ONE; -ISOVUE-370 76% 100ML VIAL ONE; +VITA100093 PO
== END ==
LOC: M RAD 08:48
PROVIDERS: ATTEND Otolaryngology
DX: R13.10 Dysphagia, unspecified (principal)
CPT/HCPCS: 70491; 74220; Q9967

== ENCOUNTER → 2022-08-20 | Day surgery (SDC) | payer MEDICARE ==
[~2022-08-20] VITALS: Ht 175.3 cm; Wt 86.1 kg
[~2022-08-20] MED LIST changes: +CETI5SOL3 PO; -E-Z-GAS II EFFERVESCENT PACKET (SODIUM BICARB./CITRIC ACID/SIMETHICONE) As Ordered ONE; -E-Z-HD 98% w/w 340GM SUSP BTL As Ordered ONE; -E-Z-PAQUE 96% w/w SUSP 176GM BTL As Ordered ONE; +ECOT81TA5 PO; -ISOVUE-370 76% 100ML VIAL As Ordered ONE; +LIDOCAINE 2% 100MG/5ML SDV (FOR ANES.) As Ordered ONE; +NS 1,000 ML IV ONE; +ePHEDrine SULFATE 25 MG/5 ML(5MG/ML) SYRINGE As Ordered ONE; +fentaNYL 100 MCG/2 ML INJECTION As Ordered ONE; +propofoL 200 MG/20 ML VIAL As Ordered ONE
[2022-08-20 16:03] VITALS: BP 149/79; TEMP 97.8; O2SAT 97
== END | disposition home or self-care (01) ==
LOC: M OPP 12:20
PROVIDERS: ATTEND Internal Medicine Gastroenterology
DX: K22.89 Other specified disease of esophagus (principal); Z98.890 Other specified postprocedural states; K22.2 Esophageal obstruction; K29.70 Gastritis, unspecified, without bleeding; R13.10 Dysphagia, unspecified; R93.3 Abnormal findings on diagnostic imaging of other parts of digestive tract; Z79.02 Long term (current) use of antithrombotics/antiplatelets; Z79.890 Hormone replacement therapy; Z79.891 Long term (current) use of opiate analgesic; Z79.899 Other long term (current) drug therapy
CPT/HCPCS: 43239; 43249; 88305; J3010